=== PATIENT | male | born 1980 ===

== ENCOUNTER 2018-12-31 18:06 | Emergency (ER) | payer OTHER ==
[2018-12-31 18:35] VITALS: BMI 21.3
[2018-12-31] MEDS ORDERED: Sodium Chloride 0.9% 1,000 ML IV STA (18:50)
[2018-12-31 19:27] LABS: BASO # 0.02 K/mm3 (0.0-2.0); BASO % 0.2 % (0.0-3.0); EOS % 0.2 % (1.5-5.0); HEMOGLOBIN 13.8 g/dL (14.0-18.0); LYMPH # 2.1 (1.2-3.4); LYMPH % 25.1 % (22.0-35.0); MEAN CELL VOLUME 87.9 fl (80.0-105.0); MEAN CORPUSCULAR HEMOGLOBIN 29.9 pg (25.0-35.0); MEAN PLATELET VOLUME 9.9 fl (7.0-11.0); MONO # 0.6 (0.1-0.6); MONO % 7.3 % (1.0-6.0); RBC 4.62 10^6/uL (3.5-6.1); RED CELL DISTRIBUTION WIDTH 12.3 % (11.5-14.5); WHITE BLOOD COUNT 8.4 10^3/uL (4.5-11.0)
[2018-12-31 19:36] LABS: ALB/GLOB RATIO 1.3 (1.1-1.8); ALBUMIN 4.3 g/dL (3.0-4.8); ALT/SGPT 31 U/L (7-56); AST/SGOT 18 U/L (17-59); BLOOD UREA NITROGEN 18 mg/dL (7-21); CALCIUM 10.4 mg/dL (8.4-10.5); GFR NON-AFRICAN AMERICAN > 60; INR 1.08; LIPASE 299 U/L (23-300); PARTIAL THROMBOPLASTIN TIME 29.4 Seconds (26.9-38.3)
[2018-12-31 20:07] LABS: URINE BILIRUBIN NEGATIVE (NEGATIVE); URINE BLOOD NEGATIVE (NEGATIVE); URINE GLUCOSE (UA) NEGATIVE (NEGATIVE); URINE LEUKOCYTE ESTERASE NEGATIVE Leu/uL (NEGATIVE); URINE PROTEIN NEGATIVE mg/dL (<30 mg/dL); URINE UROBILINOGEN 0.2 E.U./dL (<1 E.U./dL)
[2018-12-31 20:08] LABS: URINE APPEARANCE CLEAR (CLEAR); URINE COLOR YELLOW (YELLOW)
[2018-12-31] MEDS ORDERED: Iohexol 350 MG/100 ML VIAL ONE ×2 (20:56→21:15)
--- NOTE | 2018-12-31 21:46 | ED PDOC ---
Arrival/HPI <Vega Almonte - Last Filed: 12/31/18 23:08> - General Historian: Patient - History of Present Illness Narrative History of Present Illness (Text): 12/31/18 18:50 38 year old male presents to the emergency department today complaining of right lower quadrant abdominal pain associated with nausea, vomiting, and generalized weakness that began this morning when he woke up. Patient states he was not feeling well and reports he had a cramp-like sensation to the right side of his abdomen. He reports he has been feeling nauseous all day and this afternoon he reports 1 episode of vomiting which he believes there was blood in the vomit. Patient denies any alcohol use, smoking, or NSAIDS use. Patient denies fever, chills chest pain shortness of breath, headache, urinary symptoms, testicular pain, or any other complaints. PMD: Dr. Burgos Time/Duration: Other (this morning) Symptom Onset: Gradual Symptom Course: Unchanged Activities at Onset: Light Context: Home <Stacey Alexis - Last Filed: 12/31/18 23:40> - General Chief Complaint: Abdominal Pain Time Seen by Provider: 12/31/18 18:39 Past Medical History - Provider Review Nursing Documentation Reviewed: Yes - Infectious Disease Hx of Infectious Diseases: None - Reproductive Currently Lactating: No - Psychiatric Hx Substance Use: No <Stacey Alexis - Last Filed: 12/31/18 23:40> Family/Social History - Physician Review Nursing Documentation Reviewed: Yes Family/Social History: No Known Family HX Smoking Status: Never Smoked Hx Alcohol Use: No Hx Substance Use: No <Stacey Alexis - Last Filed: 12/31/18 23:40> Allergies/Home Meds <Vega Almonte - Last Filed: 12/31/18 23:08> <Stacey Alexis - Last Filed: 12/31/18 23:40> Allergies/Adverse Reactions: Allergies No Known Allergies Allergy (Verified 12/31/18 18:35) Review of Systems - Physician Review All systems were reviewed & negative as marked: Yes - Review of Systems Constitutional: Fatigue. absent: Fevers, Other (chills) Respiratory: absent: SOB, Cough Cardiovascular: absent: Chest Pain, Palpitations Gastrointestinal: Abdominal Pain, Nausea, Vomiting, Hematemesis. absent: Constipation, Diarrhea Genitourinary Male: Other (no testicular pain). absent: Dysuria, Frequency, Hematuria Musculoskeletal: absent: Arthralgias, Back Pain, Neck Pain Skin: absent: Rash, Pruritis Neurological: Other (generalized weakness). absent: Headache Psychiatric: absent: Anxiety, Depression <Stacey Alexis - Last Filed: 12/31/18 23:40> Physical Exam Vital Signs Temp Pulse Resp BP Pulse Ox 12/31/18 22:26 97.8 F 12/31/18 22:14 69 18 135/65 98 12/31/18 20:40 73 18 138/69 98 12/31/18 18:59 78 18 145/75 96 12/31/18 18:35 99.0 F 120 H 18 150/89 96 <Vega Almonte - Last Filed: 12/31/18 23:08> Vital Signs Reviewed: Yes Vital Signs Temp Pulse Resp BP Pulse Ox 12/31/18 20:40 73 18 138/69 98 12/31/18 18:59 78 18 145/75 96 12/31/18 18:35 99.0 F 120 H 18 150/89 96 Temperature: Afebrile Blood Pressure: Normal Pulse: Tachycardic Respiratory Rate: Normal Appearance: Positive for: Well-Appearing, Non-Toxic, Comfortable Pain Distress: None Mental Status: Positive for: Alert and Oriented X 3 - Systems Exam Head: Present: Atraumatic Mouth: Present: Moist Mucous Membranes Neck: Present: Normal Range of Motion Respiratory/Chest: Present: Clear to Auscultation, Good Air Exchange. No: Respiratory Distress, Accessory Muscle Use Cardiovascular: Present: Regular Rate and Rhythm, Normal S1, S2. No: Murmurs Abdomen: Present: Tenderness (RLQ abdominal tenderness and periumbilical tenderness). No: Distention, Peritoneal Signs, Rebound, Guarding Back: Present: Normal Inspection. No: CVA Tenderness, Midline Tenderness, Paraspinal Tenderness Upper Extremity: Present: Normal Inspection, Normal ROM Lower Extremity: Present: Normal Inspection, Normal ROM Neurological: Present: GCS=15, Speech Normal Skin: Present: Warm, Dry, Normal Color. No: Rashes Psychiatric: Present: Alert, Oriented x 3 <Stacey Alexis - Last Filed: 12/31/18 23:40> Medical Decision Making - Lab Interpretations Lab Results: PT 12.0 SECONDS (9.4-12.5) 12/31/18 19:20 INR 1.08 12/31/18 19:20 APTT 29.4 Seconds (26.9-38.3) 12/31/18 19:20 Total Bilirubin 0.3 mg/dL (0.2-1.3) 12/31/18 19:20 AST 18 U/L (17-59) 12/31/18 19:20 ALT 31 U/L (7-56) 12/31/18 19:20 Alkaline Phosphatase 65 U/L (38-126) 12/31/18 19:20 Total Protein 7.6 g/dL (5.8-8.3) 12/31/18 19:20 Albumin 4.3 g/dL (3.0-4.8) 12/31/18 19:20 Globulin 3.3 gm/dL 12/31/18 19:20 Albumin/Globulin Ratio 1.3 (1.1-1.8) 12/31/18 19:20 Lipase 299 U/L (23-300) 12/31/18 19:20 Urine Color Yellow (YELLOW) 12/31/18 19:49 Urine Appearance Clear (CLEAR) 12/31/18 19:49 Urine pH 6.0 (4.7-8.0) 12/31/18 19:49 Ur Specific [place] 1.025 (1.005-1.035) 12/31/18 19:49 Urine Protein Negative mg/dL (<30 mg/dL) 12/31/18 19:49 Urine Glucose (UA) Negative mg/dL (NEGATIVE) 12/31/18 19:49 Urine Ketones Negative mg/dL (NEGATIVE) 12/31/18 19:49 Urine Blood Negative (NEGATIVE) 12/31/18 19:49 Urine Nitrate Negative (NEGATIVE) 12/31/18 19:49 Urine Bilirubin Negative (NEGATIVE) 12/31/18 19:49 Urine Urobilinogen 0.2 E.U./dL (<1 E.U./dL) 12/31/18 19:49 Ur Leukocyte Esterase Negative Johnnie/uL (NEGATIVE) 12/31/18 19:49 - RAD Interpretation Radiology Orders: 12/31/18 18:50 CHEST PORTABLE [RAD] Stat 12/31/18 19:10 ABD & PELVIS IV CONTRAST ONLY [CT] Stat - Medication Orders Current Medication Orders: Discontinued Medications Sodium Chloride (Sodium Chloride 0.9%) 1,000 mls @ 999 mls/hr IV .Q1H1M STA Stop: 12/31/18 19:50 Last Admin: 12/31/18 19:25 Dose: 999 mls/hr eMAR Start Stop Document 12/31/18 19:25 LA (Rec: 12/31/18 19:26 [place] [id number]) Intravenous Solution Start Date 12/31/18 Start Time 19:26 End Date 12/31/18 End time 20:27 Total Infusion Time 61 Sodium Chloride (Sodium Chloride 0.9%) 500 mls @ 999 mls/hr IV .Q31M STA Stop: 12/31/18 23:04 Pantoprazole Sodium (Protonix Inj) 40 mg IVP STAT STA Stop: 12/31/18 18:51 Last Admin: 12/31/18 19:26 Dose: 40 mg IVP Administration Document 12/31/18 19:26 LA (Rec: 12/31/18 19:26 [place] [id number]) Charges for Administration # of IVP Administrations 1 <Vega Almonte - Last Filed: 12/31/18 23:08> ED Course and Treatment: 12/31/18 22:19 Patient is nontoxic well appearing with stable vital signs presenting with abdominal pain, fatigue, 1 episode of vomiting. CBC wnl CMP wnl Lipase wnl Urinalysis wnl CAT scan: FINDINGS: LUNG BASES: Minimal linear atelectasis near the bases. LIVER: Unremarkable. GALLBLADDER AND BILE DUCTS: The gallbladder appears within normal limits. No radioopaque gallstones are seen. No biliary ductal dilatation is evident. PANCREAS: Unremarkable. SPLEEN: Unremarkable. ADRENAL GLANDS: Unremarkable. KIDNEYS, URETERS, AND BLADDER: The kidneys appear within normal limits. There is no hydronephrosis or hydroureter. No urinary calculi are seen. STOMACH AND BOWEL: Mild constipation in the colon. APPENDIX: Normal appendix is present in the right lower quadrant. PERITONEUM: No free fluid. No free air. LYMPH NODES: No lymphadenopathy is evident. REPRODUCTIVE: Unremarkable as visualized. VASCULATURE: No evidence of abdominal aortic aneurysm. BONES: Minimal multilevel degenerative spine changes. IMPRESSION: 1. Mild constipation in the colon. 2. Normal appendix is present in the right lower quadrant. 4. No definite acute pathology identified in the abdomen or pelvis. Electronically signed on Dec 31, 2018 10:16:31 PM EDT by: Janak Cates M.D., MBA Certified By [facility] & [facility] [employer] Trained MRI and CT Specialist rapid flu negative cxr;wnl Patient reassessment:pt feeling better. no vomiting in er. Discussed all results with patient in depth, pt advised to increase fluids. follow up with primary care physician. i advised immediate return if symptoms worsen,persist or if new symptoms develop. Patient verbalizes understanding of discharge instructions and need for immediate followup. All aspects of this case were discussed the attending of record. Impression: Abdominal pain, vomiting tylenol every 4 hours as needed for pain Increase fluids Pepcid one tablet daily Follow up with primary care physician within the next 2 days Follow up with the GI doctor within the next 2 days. Return immediately if symptoms worsen persist or if new symptoms develop: High fevers, increasing pain, vomiting, diarrhea or any other concerning symptoms develop Reassessment Condition: Re-examined, Improved - Lab Interpretations Lab Results: PT 12.0 SECONDS (9.4-12.5) 12/31/18 19:20 INR 1.08 12/31/18 19:20 APTT 29.4 Seconds (26.9-38.3) 12/31/18 19:20 Total Bilirubin 0.3 mg/dL (0.2-1.3) 12/31/18 19:20 AST 18 U/L (17-59) 12/31/18 19:20 ALT 31 U/L (7-56) 12/31/18 19:20 Alkaline Phosphatase 65 U/L (38-126) 12/31/18 19:20 Total Protein 7.6 g/dL (5.8-8.3) 12/31/18 19:20 Albumin 4.3 g/dL (3.0-4.8) 12/31/18 19:20 Globulin 3.3 gm/dL 12/31/18 19:20 Albumin/Globulin Ratio 1.3 (1.1-1.8) 12/31/18 19:20 Lipase 299 U/L (23-300) 12/31/18 19:20 Urine Color Yellow (YELLOW) 12/31/18 19:49 Urine Appearance Clear (CLEAR) 12/31/18 19:49 Urine pH 6.0 (4.7-8.0) 12/31/18 19:49 Ur Specific [place] 1.025 (1.005-1.035) 12/31/18 19:49 Urine Protein Negative mg/dL (<30 mg/dL) 12/31/18 19:49 Urine Glucose (UA) Negative mg/dL (NEGATIVE) 12/31/18 19:49 Urine Ketones Negative mg/dL (NEGATIVE) 12/31/18 19:49 Urine Blood Negative (NEGATIVE) 12/31/18 19:49 Urine Nitrate Negative (NEGATIVE) 12/31/18 19:49 Urine Bilirubin Negative (NEGATIVE) 12/31/18 19:49 Urine Urobilinogen 0.2 E.U./dL (<1 E.U./dL) 12/31/18 19:49 Ur Leukocyte Esterase Negative Johnnie/uL (NEGATIVE) 12/31/18 19:49 - RAD Interpretation Radiology Orders: 12/31/18 18:50 CHEST PORTABLE [RAD] Stat 12/31/18 19:10 ABD & PELVIS IV CONTRAST ONLY [CT] Stat - Medication Orders Current Medication Orders: Discontinued Medications Sodium Chloride (Sodium Chloride 0.9%) 1,000 mls @ 999 mls/hr IV .Q1H1M STA Stop: 12/31/18 19:50 Last Admin: 12/31/18 19:25 Dose: 999 mls/hr eMAR Start Stop Document 12/31/18 19:25 LA (Rec: 12/31/18 19:26 [place] [id number]) Intravenous Solution Start Date 12/31/18 Start Time 19:26 End Date 12/31/18 End time 20:27 Total Infusion Time 61 Pantoprazole Sodium (Protonix Inj) 40 mg IVP STAT STA Stop: 12/31/18 18:51 Last Admin: 12/31/18 19:26 Dose: 40 mg IVP Administration Document 12/31/18 19:26 LA (Rec: 12/31/18 19:26 [place] [id number]) Charges for Administration # of IVP Administrations 1 <Stacey Alexis - Last Filed: 12/31/18 23:40> - PA / DOCUMENTATION LIAISON / Resident Statement ALIA has reviewed & agrees with the documentation as recorded. ALIA has examined the patient and agrees with the treatment plan. <Vega Almonte Last Filed: 12/31/18 23:08> - Scribe Statement The provider has reviewed the documentation as recorded by the Brody Khoury Provider Brody Attestation: All medical record entries made by the Scribe were at my direction and personally dictated by me. I have reviewed the chart and agree that the record accurately reflects my personal performance of the history, physical exam, medical decision making, and the department course for this patient. I have also personally directed, reviewed, and agree with the discharge instructions and disposition. <Stacey Alexis - Last Filed: 12/31/18 23:40> Disposition/Present on Arrival <Vega Almonte - Last Filed: 12/31/18 23:08> - Present on Arrival Any Indicators Present on Arrival: No History of DVT/PE: No History of Uncontrolled Diabetes: No Urinary Catheter: No History of Decub. Ulcer: No History Surgical Site Infection Following: None - Disposition Have Diagnosis and Disposition been Completed?: Yes Disposition Time: 23:39 Patient Plan: Discharge <Stacey Alexis Argenis - Last Filed: 12/31/18 23:40> - Disposition Diagnosis: Abdominal pain, Vomiting Disposition: HOME/ ROUTINE Condition: GOOD Discharge Instructions (ExitCare): Nausea and Vomiting, Adult, Acute Abdomen (Belly Pain), Adult (DC) Additional Instructions: tylenol every 4 hours as needed for pain Increase fluids Pepcid one tablet daily Follow up with primary care physician within the next 2 days Follow up with the GI doctor within the next 2 days. Return immediately if symptoms worsen persist or if new symptoms develop: High fevers, increasing pain, vomiting, diarrhea or any other concerning symptoms develop Prescriptions: Famotidine [Pepcid] 20 mg PO DAILY #30 tab Referrals: Lanette Arizmendi MD [Medical Doctor] - Follow up with primary Van Choe DO [Staff Provider] - Follow up with primary [facility] [Outside] - Follow up with primary Forms: [facility] (Bangladeshi), WORK NOTE
[2018-12-31 22:27] VITALS: TEMP 97.8
[2018-12-31] MEDS ORDERED: Sodium Chloride 0.9% 500 ML IV STA (22:34)
[2019-01-01 00:22] VITALS: BP 129/75; PULSE 83; RESP 19; O2SAT 100
--- NOTE | 2019-01-01 08:31 | RAD ---
HISTORY: abd pain/vomiting COMPARISON: None available TECHNIQUE: Chest, one view. FINDINGS: LUNGS: No focal consolidation. Please note that chest x-ray has limited sensitivity for the detection of pulmonary masses. PLEURA: No significant pleural effusion identified. No definite pneumothorax . CARDIOVASCULAR: The cardiomediastinal silhouette appears within normal limits of size. No significant atherosclerotic calcification present. OSSEOUS STRUCTURES: No acute osseous abnormality identified. VISUALIZED UPPER ABDOMEN: Unremarkable. OTHER FINDINGS: None. IMPRESSION: No focal consolidation.
--- NOTE | 2019-01-01 10:35 | CT ---
Date of service: 12/31/2018 PROCEDURE: CT Abdomen and Pelvis with contrast HISTORY: RLQ abd pain/n/v COMPARISON: None available. TECHNIQUE: Contrast dose: 99 mL Omnipaque 350 Radiation dose: Total exam DLP = 279.55 mGy-cm. This CT exam was performed using one or more of the following dose reduction techniques: Automated exposure control, adjustment of the mA and/or kV according to patient size, and/or use of iterative reconstruction technique. FINDINGS: LOWER THORAX: No visible consolidation, pleural effusion, or pneumothorax. LIVER: Unremarkable. GALLBLADDER AND BILE DUCTS: Contracted gallbladder appears otherwise unremarkable. PANCREAS: Unremarkable. SPLEEN: Unremarkable. ADRENALS: Unremarkable. KIDNEYS AND URETERS: The kidneys enhance symmetrically. No hydronephrosis or obstructing calculus identified. VASCULATURE: No aortic aneurysm. No atherosclerotic calcification or mural plaque present. BOWEL: Stomach is nondistended. Lack of oral contrast limits evaluation for bowel pathology. Bowel loops appear within normal limits of caliber without evidence of obstruction. Mild constipation. APPENDIX: The appendix appears within normal limits of caliber. No secondary signs of acute appendicitis. PERITONEUM: No significant free fluid. No definite free air. LYMPH NODES: No bulky adenopathy identified. BLADDER: Unremarkable. REPRODUCTIVE: Unremarkable. BONES: Degenerative changes. OTHER FINDINGS: None. IMPRESSION: Mild constipation. Preliminary impression was provided by [facility].
--- NOTE | 2019-01-01 21:04 | CARD ---
APPROVED REPORT Date of service: 12/31/2018 EKG Measurement Heart [id number] <Conclusion> Normal sinus rhythm Normal ECG
== END 2019-01-01 00:22 | disposition home or self-care (01) ==
LOC: EDSEX → ED 18:06 → MERGE 18:06 → ED 01-01 00:22
DX: R10.9 Unspecified abdominal pain (principal); R11.10 Vomiting, unspecified
CPT/HCPCS: 71045; 74177; 80053; 81003; 83690; 85025; 85610; 85730; 86850; 86900; 87804; 93005; 96361; 96374; 99285; C9113; J7030; J7040; Q9967